=== PATIENT | male | born 1985 | race Caucasian/White ===

== ENCOUNTER → 2020-05-23 | Outpatient (CLI) | payer OTHER ==
[~2020-05-23] MED LIST: ALPR0.5T7 PO
== END | disposition home or self-care (01) ==
LOC: STAR 14:27
PROVIDERS: ATTEND Urology
DX: Z01.812 Encounter for preprocedural laboratory examination (principal); Z20.828 Contact with and (suspected) exposure to other viral communicable diseases; N43.3 Hydrocele, unspecified
CPT/HCPCS: 36415; 87635

== ENCOUNTER 2020-05-28 13:04 | Observation (INO) | payer OTHER ==
[~2020-05-28] VITALS: Ht 172.7 cm; Wt 83.0 kg
[~2020-05-28 13:04] MED LIST changes: +BUPIVACAINE/PF 0.5% ONE
[2020-05-28] MEDS ORDERED: CHLORHEXIDINE 15 ML UDC MM STA (13:14)
[2020-05-28] MEDS ORDERED: CHLORHEXIDINE 15 ML UDC ONE (13:17)
[2020-05-28] MEDS ORDERED: LACTATED RINGERS 1,000 ML IV SCH ×2 (13:30→19:00)
[2020-05-28] MEDS ORDERED: FENTANYL PF 250 MCG/5ML ONE (14:51)
[2020-05-28] MEDS ORDERED: MIDAZOLAM 1 MG/ML, 2ML ONE (14:51)
[2020-05-28] MEDS ORDERED: DIPHENHYDRAMINE 50 MG/ML, 1ML IVPush PRN (15:00)
[2020-05-28] MEDS ORDERED: HALOPERIDOL 5 MG/ML IV PRN (15:00)
[2020-05-28] MEDS ORDERED: LABETALOL 5MG/ML, 20ML IV PRN (15:00)
[2020-05-28] MEDS ORDERED: PROMETHAZINE 25 MG/ML, 1ML IVPush PRN (15:00)
[2020-05-28] MEDS ORDERED: hydrALAzine 20 MG/ML, 1ML IV PRN (15:00)
[2020-05-28] MEDS ORDERED: HYDROmorphone 1 MG/ML, 1ML INJ IVPush PRN (15:00)
[2020-05-28] MEDS ORDERED: FENTANYL PF 100 MCG/2ML IV PRN (15:00)
[2020-05-28] MEDS ORDERED: MEPERIDINE/PF 25MG/0.5ML IVPush PRN (15:00)
[2020-05-28] MEDS ORDERED: HYDROcodone/APAP 7.5-325MG/15ML UDC PO PRN (15:00)
[2020-05-28] MEDS ORDERED: BUPIVACAINE/PF 0.25% ONE (15:17)
[2020-05-28] MEDS ORDERED: DEXAMETHASONE 4 MG/ML, 1ML ONE (17:08)
[2020-05-28] MEDS ORDERED: CEFAZOLIN 1,000 MG ONE (17:08)
[2020-05-28] MEDS ORDERED: PROPOFOL 10 MG/ML, 20ML ONE (17:08)
[2020-05-28] MEDS ORDERED: ONDANSETRON 2MG/ML, 2ML ONE (17:08)
[2020-05-28] MEDS ORDERED: HYDROcodone/APAP 7.5-325MG/15ML UDC ONE (18:06)
[2020-05-28] MEDS ORDERED: ONDANSETRON 2MG/ML, 2ML IV PRN (19:00)
[2020-05-28] MEDS ORDERED: OXYcodone/APAP 5/325MG TABLET PO PRN (19:00)
[2020-05-28] MEDS ORDERED: HYDROcodone/APAP 5/325 TABLET PO PRN (19:00)
[2020-05-28] MEDS ORDERED: morphine SULFATE 10 MG/ML, 1ML IV PRN (19:00)
[2020-05-28 21:12] VITALS: BP 120/80
== END 2020-05-28 21:00 | disposition home or self-care (01) ==
LOC: OUT 13:04 → 4NE 18:35 → OUT 18:38 → 4NE 19:16
PROVIDERS: ADMIT Urology; ATTEND Urology
DX: D17.6 Benign lipomatous neoplasm of spermatic cord (principal); N43.3 Hydrocele, unspecified; F41.9 Anxiety disorder, unspecified; Z79.899 Other long term (current) drug therapy; Z88.0 Allergy status to penicillin; Z87.891 Personal history of nicotine dependence
CPT/HCPCS: 55110; 55520; 88307; G0378; J0690; J1100; J2250; J2405; J2704; J3010